=== PATIENT | female | born 1965 | race Caucasian/White ===

== ENCOUNTER 2016-08-02 20:20 | Emergency (ER) | payer OTHER ==
[2016-08-02] MEDS ORDERED: ASPIRIN PO STA (20:38)
[2016-08-02 20:59] LABS: MANUAL DIFF NEEDED? NO
[2016-08-02 21:05] LABS: BASO% 0.1 % (0.0-0.8); EOS# 0.06 X1000 (0.0-0.7); EOS% 0.7 % (0.0-10.0); HEMATOCRIT 41.6 % (37.0-47.0); HEMOGLOBIN 14.2 g/dL (12.0-16.0); LYMPH# 2.32 X1000 (1.2-3.4); LYMPH% 27.1 % (20.5-51.1); MCH 28.2 PG (27-31); MCHC 34.1 g/dL (33-37); MCV 82.7 FL (81-99); MONO# 0.47 X1000 (0.11-0.59); MONO% 5.5 % (1.7-9.3); MPV 11.1 FL (7.4-10.4); NEUT% 66.6 % (42.2-75.2); PLT 194 X1000 (130-400); RBC 5.03 XMIL (4.2-5.4)
[2016-08-02 21:18] LABS: INR 1.04; PTT 28.3 Seconds (22.0-36.0)
[2016-08-02 21:26] LABS: AGAP 14; ALBUMIN 4.3 g/dL (3.5-5.0); ALKALINE PHOSPHATASE 66 U/L (32-104); BUN 14 mg/dL (8-22); CALCIUM 8.8 mg/dL (8.8-10.2); CHLORIDE 103 mmol/L (98-107); CK PROFILE 79 U/L (24-173); COSMO 282; GOT 14 U/L (10-30); GPT 12 U/L (10-36); POTASSIUM 3.7 mmol/L (3.5-5.1); SODIUM 141 mmol/L (136-145); TCO2 24 mmol/L (25-35); TOTAL BILIRUBIN 0.51 mg/dL (0.20-1.00); TOTAL PROTEIN 7.3 g/dL (6.3-8.3)
--- NOTE | 2016-08-02 21:45 | PROVIDER DOCUMENTATION ---
HPI-General Adult - General Source: patient - History of Present Illness -Gen Adult Nature of Presenting Problems: 50 y/o WF c/o feeling light headed, dizzy, sob, sinus congestion that began 4-6 hours ago. 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 States had sinus congestion x 3 days. Denies real chest pain. Had a sore throat 3 days ago as well. Has been taking zyrtec for the last two days, and nasal spray, with Ricola. <Arlin Do - Last Filed: 08/02/16 21:47> <Courtney Menezes - Last Filed: 08/02/16 22:46> - General Chief Complaint: General Adult Stated Complaint: CP, CONGESTED Time Seen by Provider: 08/02/16 21:37 Allergies/Adverse Reactions: Patient Allergies Allergy/AdvReac Type Severity Reaction Status Date / Time Penicillins Allergy Unknown Verified 08/02/16 20:41 Home Medications: Home Medication List Medication Instructions Recorded Confirmed Last Taken Type Azithromycin [Zithromax Z-Be] 250 mg PO DIRECTED #1 pkg 08/02/16 Unknown Rx Cetirizine HCl/Pseudoephedrine 1 tab PO DAILY PRN 08/02/16 08/02/16 08/02/16 History [Zyrtec-D Tablet] Review of Systems - Adult - REVIEW OF SYSTEMS - ADULT Constitutional: reports: see HPI, milady. denies: chills, fever Eyes: reports: no symptoms reported. denies: decreased vision, blurred vision, double vision, eye pain Ears, Nose, Mouth & Throat: reports: see HPI, sinus problem. denies: ear pain, nose pain, throat pain, throat swelling Cardiovascular: reports: no symptoms reported. denies: chest pain, palpitations Respiratory: reports: no symptoms reported. denies: cough, shortness of breath , wheezing Gastrointestinal: reports: no symptoms reported. denies: abdominal pain, diarrhea, nausea, vomiting Genitourinary: reports: no symptoms reported Musculoskeletal: reports: no symptoms reported. denies: bone pain, back pain, joint pain, muscle aches Integumentary: reports: no symptoms reported Neurological: reports: no symptoms reported. denies: headache/migraines Psychiatric: reports: no symptoms reported Endocrine: reports: no symptoms reported Hematologic/Lymphatic: reports: no symptoms reported Allergic/Immunologic: reports: no symptoms reported All Other Systems: Reviewed and Negative <Arlin Do - Last Filed: 08/02/16 21:47> Past History - Adult - PAST MEDICAL HISTORY-ADULT Review of Records: reports: Old Records Reviewed, Nursing Assessment Review, Medications Reviewed Major Childhood Illnesses: reports: denies history Cardiovascular: reports: denies history Respiratory: reports: denies history Gastrointestinal: reports: denies history Obstetrical/Gynecological: reports: denies history Genitourinary: reports: denies history Musculoskeletal: reports: denies history Neurological: reports: denies history Endocrine/Immune: reports: denies history Other Conditions: reports: denies history - PRIOR SURGERIES/PROCEDURES Surgical/Procedure History: reports: reviewed, not pertinent - IMMUNIZATION STATUS Childhood Immunizations: See Nurse Assessment Flu Vaccine: See Nurse Assessment - FAMILY HISTORY Family History: reviewed, not pertinent - SOCIAL HISTORY Smoking: denies Substance Use: none/never Alcohol Use Frequency: never Living Situation: family <Arlin Do - Last Filed: 08/02/16 21:47> Physical Exam-General - PHYSICAL EXAM-ADULT Initial Vital Signs Reviewed: Yes - CONSTITUTIONAL General Appearance: appears well, alert, no apparent distress - EYES Eyes: PERRL/EOMI, pink conjunctivae - HEAD, EARS, NOSE, MOUTH & THROAT HENMT: normocephalic/atraumatic, moist mucous membranes, normal ENT inspection, TMs normal, pharynx normal - NECK Neck: non-tender, full range of motion, supple, normal inspection. negative: lymphadenopathy - RESPIRATORY Respiratory: chest non-tender, lungs clear, normal breath sounds, no pleuratic chest pain, no respiratory distress, no accessory muscle use. negative: respiratory distress, decreased breath sounds, accessory muscle use, crackles, rales, rhonchi, wheezing - CARDIOVASCULAR Cardiovascular: normal peripheral pulses, regular rate, rhythm - MUSCULOSKELETAL Extremity: normal gait Peripheral Pulses: radial (R): 2+, radial (L): 2+ - SKIN Integumentary: normal color, normal turgor, warm/dry - NEUROLOGIC Neurologic: grossly normal, no motor/sensory deficits - PSYCHIATRIC Psych/Mental Status: normal mood/affect, normal thought content, normal thought process, oriented x 3 <Arlin Do - Last Filed: 08/02/16 21:47> Progress - PLAN OF CARE/RESULTS Progress/Plan/Lab Results: Vital Signs Temp Pulse Resp BP Pulse Ox 08/02/16 20:30 98.3 F 95 H 16 153/88 100 Penicillins Allergy (Verified 08/02/16 20:41) Unknown Cetirizine HCl/Pseudoephedrine [Zyrtec-D Tablet] 1 tab PO DAILY PRN 08/02/16 Laboratory 08/02/16 08/02/16 08/02/16 20:40 20:40 20:40 WBC RBC Hgb Hct MCV MCH MCHC RDW Std Deviation Plt Count MPV Immature Gran % (Auto) Neut % (Auto) Lymph % (Auto) Ford % (Auto) Eos % (Auto) Baso % (Auto) Immature Gran # (Auto) Neut # (Auto) Lymph # (Auto) Ford # (Auto) Eos # (Auto) Baso # (Auto) PT 11.0 INR 1.04 PTT (Actin FS) 28.3 D-Dimer Sodium Potassium Chloride Carbon Dioxide Anion Gap BUN Creatinine Estimated GFR/1.73 m2 BUN/Creatinine Ratio Glucose Calculated Osmolality Calcium Magnesium Total Bilirubin AST ALT Alkaline Phosphatase Creatine Kinase Troponin T < 0.010 Dby-O-Ajvsjhdsfit Pept 26 Total Protein Albumin Globulin Albumin/Globulin Ratio 08/02/16 08/02/16 08/02/16 20:40 20:40 20:40 WBC 8.56 RBC 5.03 Hgb 14.2 Hct 41.6 MCV 82.7 MCH 28.2 MCHC 34.1 RDW Std Deviation 13.5 Plt Count 194 MPV 11.1 H Immature Gran % (Auto) 0.0 Neut % (Auto) 66.6 Lymph % (Auto) 27.1 Ford % (Auto) 5.5 Eos % (Auto) 0.7 Baso % (Auto) 0.1 Immature Gran # (Auto) 0.00 Neut # (Auto) 5.70 Lymph # (Auto) 2.32 Ford # (Auto) 0.47 Eos # (Auto) 0.06 Baso # (Auto) 0.01 PT INR PTT (Actin FS) D-Dimer 0.16 Sodium 141 Potassium 3.7 Chloride 103 Carbon Dioxide 24 L Anion Gap 14 BUN 14 Creatinine 0.7 Estimated GFR/1.73 m2 > 60 BUN/Creatinine Ratio 20 Glucose 95 Calculated Osmolality 282 Calcium 8.8 Magnesium 2.0 Total Bilirubin 0.51 AST 14 ALT 12 Alkaline Phosphatase 66 Creatine Kinase 79 Troponin T Lar-O-Jlgstgddbga Pept Total Protein 7.3 Albumin 4.3 Globulin 3.0 Albumin/Globulin Ratio 1.4 Orders Category Date Time Status Cardiac Monitoring DIRECTED Care 08/02/16 20:38 Active CHEST-2 VIEWS [RAD] Stat Exams 08/02/16 20:38 Taken CBC WITH ELECTRONIC DIFF [HEME] Stat Lab 08/02/16 20:40 Completed CK PROFILE [SP CHEM] Stat Lab 08/02/16 20:40 Completed COMPREHENSIVE METABOLIC PANEL [CHEM] Stat Lab 08/02/16 20:40 Completed D-DIMER [CHEM] Stat Lab 08/02/16 20:40 Completed MAGNESIUM [CHEM] Stat Lab 08/02/16 20:40 Completed PRO B-NATRIURETIC PEPTIDE Stat Lab 08/02/16 20:40 Completed PROTIME WITH INR [COAG] Stat Lab 08/02/16 20:40 Completed PTT [COAG] Stat Lab 08/02/16 20:40 Completed TROPONIN T Stat Lab 08/02/16 20:40 Completed Aspirin Med 08/02/16 20:38 Discontinued 325 mg PO STAT STA EKG [EKG] Stat Ther 08/02/16 20:38 Ordered - XRAY 1 XRAY: Bilateral XRAY Study: Chest Impression: Normal (NAD ER prelim) <Arlin Do - Last Filed: 08/02/16 21:47> - EKG 1 Time of EKG reading by physician:: 20:40 EKG Read and Signed by:: Maulik Whitehead EKG Interpretation (*Must complete 3 of following elements*): Normal Rate: 98 Rhythm: NSR [place]: normal <Courtney Menezes - Last Filed: 08/02/16 22:46> Departure - Departure Time of Disposition Order: 21:47 Certified Medical Emergency: Emergent <Arlin Do - Last Filed: 08/02/16 21:47> <Courtney Menezes - Last Filed: 08/02/16 22:46> - Departure DIAGNOSIS: Acute sinusitis Qualifiers: Sinusitis location: maxillary Recurrence: non-recurrent Qualified Code(s): J01.00 - Acute maxillary sinusitis, unspecified Disposition: HOME 01 Condition: Stable Additional Instructions: ED Follow Up Instructions: You have been treated by a care provider in the Emergency Department. These instructions are being provided to you so you can have an understanding of how to care for yourself upon discharge. Upon discharge from the Emergency Department, you are responsible for making arrangements for follow-up care by a physician of your choice. Take all prescribed medications as directed. Return to the Emergency Department immediately for any new or worsening symptoms. You may call the Physician Referral phone number at [phone] to obtain a list of Physicians who are taking new patients. Prescriptions: Azithromycin [Zithromax Z-Be] 250 mg PO DIRECTED #1 pkg Referrals: Nicki Reynolds MD [Primary Care Provider] - Instructions: Sinusitis, [id number] Attestation - Physician/ BRYANT Attestation Patient care was provided by Advanced Practice Provider:: Yes Advanced Practice Provider:: Arlin Do Advanced Practice Provider documentation review:: The Mid-level provider documentation, treatment plan and medical decision making was reviewed by the physician who agrees with all treatment and medical decision making by the MLP. <Arlin Do - Last Filed: 08/02/16 21:47> Physician Attestation
[2016-08-02 22:12] VITALS: BP 137/87
--- NOTE | 2016-08-03 05:18 | EKG Report ---
Test Performed on : 08/02/2016 8:40:57 PM Test Reason : Chest Pain Blood Pressure : / mmHG Vent. Rate : 098 BPM Atrial Rate : 098 BPM P-R Int : 148 ms QRS Dur : 092 ms QT Int : 358 ms P-R-T Axes : 069 026 030 degrees QTc Int : 457 ms Normal sinus rhythm. Normal ECG No previous ECGs available Unconfirmed Result
--- NOTE | 2016-08-03 08:34 | Diag Imaging Result Document ---
PROCEDURE NAME: CHEST-2 VIEWS - 08/02/2016 FRONTAL AND LATERAL CHEST, TWO VIEWS: FINDINGS: The lungs are well expanded. The heart is not enlarged. The pulmonary vessels are small. There are no infiltrates. No pleural effusions. Mild scoliosis. No free air beneath the diaphragm. IMPRESSION: No acute abnormality.
== END 2016-08-02 22:10 | disposition home or self-care (01) ==
LOC: ED 20:20
DX: J01.00 Acute maxillary sinusitis, unspecified (principal); R42 Dizziness and giddiness; R06.02 Shortness of breath; R09.81 Nasal congestion; R53.83 Other fatigue
CPT/HCPCS: 71020; 80053; 82550; 83735; 83880; 84484; 85025; 85379; 85610; 85730; 93005